=== PATIENT | male | born 1960 | race Hispanic/Latino ===

== ENCOUNTER 2023-02-18 13:12 | Emergency (ER) | payer MEDICAID, SELFPAY ==
[2023-02-18 14:19] LABS: #Basophils 0.1 thou/uL (0.0-0.2); #Eosinphils 0.4 thou/uL (0.0-0.7); #Monocytes 0.7 thou/uL (0.11-0.59); #Neutrophils 5.3 thou/uL (1.40-6.50); %Eosinophils 4.7 % (0.0-10.0); %Lymphocytes 28.7 % (21.0-51.0); %Monocytes 7.5 % (0.0-10.0); %Neutrophils 57.8 % (42.0-75.0); Hematocrit 32.7 % (42.0-52.0); Hemoglobin 11.2 g/dL (14.0-18.0); Mean Corpuscular HGB CONC 34.3 g/dL (32.0-36.0); Mean Corpuscular Hemoglobin 30.2 pg (27.0-31.0); Mean Corpuscular Volume 88.1 fl (78.0-98.0); Mean Platelet Volume 10.1 fL (7.4-10.4); Platelet Count 398 10x3/uL (130-400); Red Blood Cell (RBC) Count 3.71 mill/uL (4.70-6.10); White Blood Cell (WBC) Count 9.2 10x3/uL (4.8-10.8)
[2023-02-18 14:37] LABS: ALT (SGPT) 13 U/L (8-55); AST (SGOT) 10 U/L (5-34); Acetaminophen Less than 10 mcg/mL (10.0-30.0); Albumin 4.1 g/dL (3.4-4.8); Alcohol Less than 10.0 mg/dL (Less than 10); Alkaline Phosphatase 98 U/L (40-110); Anion Gap 13 mmol/L (10-20); BUN (Urea Nitrogen) 10 mg/dL (8.4-25.7); Bilirubin, Total 0.4 mg/dL (0.2-1.2); Calc. Creatinine Clearance 0 mL/min (70-130); Calcium 9.1 mg/dL (7.8-10.44); Carbon Dioxide 26 mmol/L (23-31); Chloride 99 mmol/L (98-107); Estimated GFR 87; Globulin 2.5 g/dL (2.4-3.5); Glucose 189 mg/dL (80-115); Potassium 3.3 mmol/L (3.5-5.1); Protein, Total 6.6 g/dL (5.8-8.1); Salicylate Less than 8.0 mg/dL (15.0-30.0); Sodium 135 mmol/L (136-145)
[2023-02-18 14:41] LABS: Troponin I Less than 0.010 ng/mL (< 0.028)
[2023-02-18] MEDS ORDERED: Potassium Bicarbonate/Cit Ac 20 MEQ TAB ONE (15:52)
== END 2023-02-18 16:55 | disposition home or self-care (01) ==
LOC: ERS 13:12
DX: E87.6 Hypokalemia (principal); E11.9 Type 2 diabetes mellitus without complications; I10 Essential (primary) hypertension
CPT/HCPCS: 36415; 70450; 80053; 80307; 84484; 85025; 93005

== ENCOUNTER 2023-02-23 18:39 | Inpatient (IN) | payer OTHER, SELFPAY ==
[2023-02-23 19:24] LABS: Bacteria/HPF None Seen HPF (None Seen); Bilirubin Negative (Negative); Blood, Urine Negative (Negative); CAUTI Indications for Culture Alt mental st,lethar; Clarity Clear (Clear); Glucose, Urine (Dipstick) 300 mg/dL (Negative); Ketone, Urine Negative (Negative); Leukocyte Negative Leu/uL (Negative); Nitrite Negative (Negative); Protein, Urine (Dipstick) Negative (Neg-Trace); RBC/HPF None Seen HPF (0-3); Specific Gravity, Urine 1.009 (1.002-1.036); Squamous Epithelial 0-3 HPF (0-3); Urobilinogen Normal mg/dL (Less than 2); WBC/HPF 0-3 HPF (0-3)
[2023-02-23 19:26] LABS: Amphetamine Not Detected (NotDetected); Barbiturates Screen Not Detected (NotDetected); Benzodiazepine Screen Not Detected (NotDetected); Cocaine Metabolite Screen Not Detected (NotDetected); Methadone Not Detected (NotDetected); Methamphetamine Not Detected (NotDetected); Opiate Screen Not Detected (NotDetected); Oxycodone Screen Not Detected (NotDetected); Phencyclidine (PCP) Not Detected (NotDetected); THC/Cannabinoid Screen Not Detected (NotDetected); Tricyclic Screen Not Detected (NotDetected)
[2023-02-23 19:29] LABS: #Basophils 0.1 thou/uL (0.0-0.2); #Eosinphils 0.4 thou/uL (0.0-0.7); #Neutrophils 5.6 thou/uL (1.40-6.50); %Basophils 0.9 % (0.0-1.0); %Eosinophils 3.8 % (0.0-10.0); %Lymphocytes 30.1 % (21.0-51.0); %Monocytes 9.9 % (0.0-10.0); %Neutrophils 54.8 % (42.0-75.0); Hematocrit 31.5 % (42.0-52.0); Mean Corpuscular HGB CONC 34.9 g/dL (32.0-36.0); Mean Corpuscular Hemoglobin 30.5 pg (27.0-31.0); Mean Corpuscular Volume 87.3 fl (78.0-98.0); Platelet Count 382 10x3/uL (130-400); RBC Distribution Width 12.9 % (11.5-14.5); Red Blood Cell (RBC) Count 3.61 mill/uL (4.70-6.10); White Blood Cell (WBC) Count 10.2 10x3/uL (4.8-10.8)
[2023-02-23 19:32] LABS: Urine Culture Reflex No No
[2023-02-23 19:50] LABS: Acetaminophen Less than 10 mcg/mL (10.0-30.0); Alcohol Less than 10.0 mg/dL (Less than 10); Lipase 26 U/L (8-78); Salicylate Less than 8.0 mg/dL (15.0-30.0)
[2023-02-23 19:51] LABS: ALT (SGPT) 10 U/L (8-55); AST (SGOT) 10 U/L (5-34); Albumin 3.8 g/dL (3.4-4.8); Alkaline Phosphatase 95 U/L (40-110); Anion Gap 14 mmol/L (10-20); BUN (Urea Nitrogen) 8 mg/dL (8.4-25.7); Bilirubin, Total 0.4 mg/dL (0.2-1.2); Calc. Creatinine Clearance 0 mL/min (70-130); Calcium 8.1 mg/dL (7.8-10.44); Carbon Dioxide 21 mmol/L (23-31); Chloride 98 mmol/L (98-107); Estimated GFR 99; Globulin 2.9 g/dL (2.4-3.5); Glucose 123 mg/dL (80-115); Potassium 3.1 mmol/L (3.5-5.1); Protein, Total 6.7 g/dL (5.8-8.1); Sodium 130 mmol/L (136-145)
[2023-02-23] MEDS ORDERED: Electrolyte Replacement Protocol 1 EACH FS PRN (22:36)
[2023-02-23] MEDS ORDERED: Ondansetron ODT 4 MG TAB PO PRN (23:03)
[2023-02-23] MEDS ORDERED: Calcium Carbonate 500 MG ChewTAB PO PRN (23:03)
[2023-02-23] MEDS ORDERED: Senokot S 8.6-50 MG TAB PO PRN (23:03)
[2023-02-23] MEDS ORDERED: Acetaminophen 325 MG TAB PO PRN (23:03)
[2023-02-23 23:26] VITALS: BMI 29.0
[2023-02-23 23:27] LABS: Hemoglobin A1c 6.8 % (4.0-6.0)
[2023-02-23] MEDS ORDERED: Potassium Chloride 20 MEQ TAB PO SCH (23:30)
[2023-02-24 06:21] LABS: #Basophils 0.1 thou/uL (0.0-0.2); #Eosinphils 0.4 thou/uL (0.0-0.7); #Monocytes 0.9 thou/uL (0.11-0.59); #Neutrophils 5.5 thou/uL (1.40-6.50); %Basophils 0.9 % (0.0-1.0); %Eosinophils 4.3 % (0.0-10.0); %Monocytes 8.5 % (0.0-10.0); %Neutrophils 55.2 % (42.0-75.0); Hematocrit 31.8 % (42.0-52.0); Hemoglobin 11.3 g/dL (14.0-18.0); Mean Corpuscular HGB CONC 35.5 g/dL (32.0-36.0); Mean Corpuscular Hemoglobin 30.6 pg (27.0-31.0); Mean Corpuscular Volume 86.2 fl (78.0-98.0); Mean Platelet Volume 10.3 fL (7.4-10.4); Platelet Count 388 10x3/uL (130-400); RBC Distribution Width 12.8 % (11.5-14.5); Red Blood Cell (RBC) Count 3.69 mill/uL (4.70-6.10)
[2023-02-24 06:50] LABS: Anion Gap 13 mmol/L (10-20); BUN (Urea Nitrogen) 7 mg/dL (8.4-25.7); Calc. Creatinine Clearance 123 mL/min (70-130); Calcium 8.2 mg/dL (7.8-10.44); Carbon Dioxide 25 mmol/L (23-31); Chloride 103 mmol/L (98-107); Estimated GFR 102; Glucose 106 mg/dL (80-115); Potassium 3.3 mmol/L (3.5-5.1); Sodium 138 mmol/L (136-145)
[2023-02-24] MEDS ORDERED: Potassium Chloride 20 MEQ TAB PO SCH (08:00)
[2023-02-24] MEDS: Famotidine 20 MG TAB PO SCH ×2 (08:53→21:18)
[2023-02-24] MEDS ORDERED: FLU VACC QS2023-24(6MOS UP)/PF 60 MCG/0.5 ML SYRINGE IM ONE (09:00)
[2023-02-24 12:55] LABS: Potassium 3.9 mmol/L (3.5-5.1)
[2023-02-24] MEDS ORDERED: Dextrose 50% Abboject 50 ML SYRINGE SLOW IVP PRN (17:24)
[2023-02-24] MEDS ORDERED: HumaLOG 300 UNITS/3 ML VIAL SC PRN ×2 (17:24)
[2023-02-24] MEDS ORDERED: Glucagon 1 MG/ML KIT IM PRN (17:24)
[2023-02-24] MEDS ORDERED: Dextrose 5% in Water 1,000 ML IV PRN (17:24)
[2023-02-24] MEDS ORDERED: hydrALAZINE 20 MG/ML VIAL SLOW IVP PRN (18:14)
[2023-02-24] MEDS ORDERED: hydrALAZINE 20 MG/ML VIAL SLOW IVP SCH (18:15)
[2023-02-24] MEDS: traZODone HCl 50 MG TAB PO SCH (21:18)
[2023-02-24] MEDS: Donepezil HCl 5 MG TAB PO SCH (21:18)
[2023-02-24] MEDS: hydrOXYzine Pamoate 25 mg Capsule PO SCH (21:18)
[2023-02-24] MEDS: Metoprolol Tartrate 25 MG TAB PO SCH (21:18)
[2023-02-24] MEDS: metFORMIN 500 MG TAB PO SCH (21:18)
[2023-02-25] MEDS: FLUoxetine HCl 20 MG CAP PO SCH (08:52)
[2023-02-25] MEDS: Aripiprazole 10 MG TAB PO SCH (08:52)
[2023-02-25] MEDS: Atorvastatin Calcium 40 MG TAB PO SCH (08:53)
[2023-02-25] MEDS: metFORMIN 500 MG TAB PO SCH ×2 (08:53→20:37)
[2023-02-25] MEDS: Metoprolol Tartrate 25 MG TAB PO SCH ×2 (08:53→20:36)
[2023-02-25] MEDS: Aspirin Chewable 81 MG TAB PO SCH (08:53)
[2023-02-25] MEDS: Famotidine 20 MG TAB PO SCH (08:53)
[2023-02-25] MEDS ORDERED: Non-Formulary Item 1 EACH (Insulin Glargine,Hum.Rec.Anlog [Basaglar Kwikpen U-100] 100 UN SQ SCH (09:00)
[2023-02-25 11:07] LABS: Anion Gap 13 mmol/L (10-20); BUN (Urea Nitrogen) 10 mg/dL (8.4-25.7); Calc. Creatinine Clearance 118 mL/min (70-130); Calcium 8.6 mg/dL (7.8-10.44); Carbon Dioxide 25 mmol/L (23-31); Chloride 103 mmol/L (98-107); Estimated GFR 101; Glucose 152 mg/dL (80-115); Magnesium 1.2 mg/dL (1.6-2.6); Phosphorus 3.2 mg/dL (2.3-4.7); Potassium 4.1 mmol/L (3.5-5.1); Sodium 137 mmol/L (136-145)
[2023-02-25] MEDS ORDERED: Magnesium Sulfate In Water 4 GM in Premix 1 BAG IVPB SCH (14:00)
[2023-02-25] MEDS: Donepezil HCl 5 MG TAB PO SCH (20:36)
[2023-02-25] MEDS: traZODone HCl 50 MG TAB PO SCH (20:36)
[2023-02-25] MEDS: hydrOXYzine Pamoate 25 mg Capsule PO SCH (20:37)
[2023-02-26 04:38] LABS: Phosphorus 3.4 mg/dL (2.3-4.7)
[2023-02-26 04:40] LABS: Anion Gap 13 mmol/L (10-20); BUN (Urea Nitrogen) 13 mg/dL (8.4-25.7); Calc. Creatinine Clearance 111 mL/min (70-130); Calcium 8.9 mg/dL (7.8-10.44); Carbon Dioxide 25 mmol/L (23-31); Chloride 102 mmol/L (98-107); Estimated GFR 99; Glucose 120 mg/dL (80-115); Magnesium 1.8 mg/dL (1.6-2.6); Potassium 3.9 mmol/L (3.5-5.1); Sodium 136 mmol/L (136-145)
[2023-02-26 07:32] VITALS: BP 119/72; TEMP 98.5
[2023-02-26] MEDS ORDERED: Magnesium 2 GM/50 ML(in water) 2 GM in Premix 1 BAG IVPB SCH (08:00)
[2023-02-26] MEDS: Aripiprazole 10 MG TAB PO SCH (08:27)
[2023-02-26] MEDS: FLUoxetine HCl 20 MG CAP PO SCH (08:27)
[2023-02-26] MEDS: metFORMIN 500 MG TAB PO SCH (08:27)
[2023-02-26] MEDS: Aspirin Chewable 81 MG TAB PO SCH (08:27)
[2023-02-26] MEDS: Metoprolol Tartrate 25 MG TAB PO SCH (08:28)
[2023-02-26] MEDS: Atorvastatin Calcium 40 MG TAB PO SCH (08:28)
== END 2023-02-26 11:20 | DRG 884 ==
LOC: ERS 18:39 → 2SE 22:42 → OBSVTOIN 02-24 17:12
PROVIDERS: ADMIT Student in an Organized Health Care Education/Training Program; ATTEND Family Medicine
DX: F03.911 Unspecified dementia, unspecified severity, with agitation (principal); G93.41 Metabolic encephalopathy; E11.9 Type 2 diabetes mellitus without complications; I10 Essential (primary) hypertension; E87.6 Hypokalemia; F31.9 Bipolar disorder, unspecified; F41.9 Anxiety disorder, unspecified; D64.9 Anemia, unspecified; E78.5 Hyperlipidemia, unspecified; Z86.73 Personal history of transient ischemic attack (TIA), and cerebral infarction without residual deficits
CPT/HCPCS: 36415; 36416; 70450; 80048; 80053; 80306; 80307; 81001; 82140; 83036; 83690; 83735; 84100; 84443; 85025; 93005; G0378; J0360; J3475; Q0177

== ENCOUNTER 2023-03-27 09:32 | Emergency (ER) | payer OTHER ==
[2023-03-27 10:26] LABS: #Basophils 0.1 thou/uL (0.0-0.2); #Eosinphils 0.3 thou/uL (0.0-0.7); #Monocytes 0.7 thou/uL (0.11-0.59); #Neutrophils 6.6 thou/uL (1.40-6.50); %Basophils 0.9 % (0.0-1.0); %Eosinophils 3.1 % (0.0-10.0); %Lymphocytes 23.2 % (21.0-51.0); %Monocytes 6.9 % (0.0-10.0); %Neutrophils 65.7 % (42.0-75.0); Hemoglobin 11.1 g/dL (14.0-18.0); Mean Corpuscular HGB CONC 33.6 g/dL (32.0-36.0); Mean Corpuscular Hemoglobin 29.6 pg (27.0-31.0); Mean Platelet Volume 10.3 fL (7.4-10.4); Platelet Count 415 10x3/uL (130-400); RBC Distribution Width 13.2 % (11.5-14.5); Red Blood Cell (RBC) Count 3.75 mill/uL (4.70-6.10); White Blood Cell (WBC) Count 10.1 10x3/uL (4.8-10.8)
[2023-03-27 10:50] LABS: ALT (SGPT) 11 U/L (8-55); AST (SGOT) 9 U/L (5-34); Albumin 3.6 g/dL (3.4-4.8); Alkaline Phosphatase 101 U/L (40-110); Anion Gap 12 mmol/L (10-20); BUN (Urea Nitrogen) 9 mg/dL (8.4-25.7); Bilirubin, Total 0.5 mg/dL (0.2-1.2); Calc. Creatinine Clearance 0 mL/min (70-130); Calcium 8.9 mg/dL (7.8-10.44); Carbon Dioxide 30 mmol/L (23-31); Chloride 100 mmol/L (98-107); Estimated GFR 100; Glucose 179 mg/dL (80-115); Potassium 3.5 mmol/L (3.5-5.1); Protein, Total 6.6 g/dL (5.8-8.1); Sodium 138 mmol/L (136-145)
[2023-03-27 10:51] LABS: Acetaminophen Less than 10 mcg/mL (10.0-30.0); Alcohol Less than 10.0 mg/dL (Less than 10); Salicylate Less than 8.0 mg/dL (15.0-30.0)
[2023-03-27 12:12] LABS: Amphetamine Not Detected (NotDetected); Barbiturates Screen Not Detected (NotDetected); Benzodiazepine Screen Not Detected (NotDetected); Cocaine Metabolite Screen Not Detected (NotDetected); Methadone Not Detected (NotDetected); Methamphetamine Not Detected (NotDetected); Opiate Screen Not Detected (NotDetected); Oxycodone Screen Not Detected (NotDetected); Phencyclidine (PCP) Not Detected (NotDetected); THC/Cannabinoid Screen Not Detected (NotDetected); Tricyclic Screen Not Detected (NotDetected)
== END 2023-03-27 14:00 | disposition home or self-care (01) ==
LOC: ERS 09:32
DX: F91.9 Conduct disorder, unspecified (principal); I10 Essential (primary) hypertension; E11.9 Type 2 diabetes mellitus without complications; E78.5 Hyperlipidemia, unspecified; Z79.82 Long term (current) use of aspirin; Z86.73 Personal history of transient ischemic attack (TIA), and cerebral infarction without residual deficits; Z79.84 Long term (current) use of oral hypoglycemic drugs; Z79.4 Long term (current) use of insulin; Z79.899 Other long term (current) drug therapy
CPT/HCPCS: 36415; 70450; 80053; 80306; 80307; 82140; 84443; 85025; 93005

== ENCOUNTER 2023-08-16 14:26 | Emergency (ER) | payer OTHER ==
[2023-08-16 16:08] LABS: #Basophils 0.05 10x3/uL (0.0-0.2); %Basophils 0.8 % (0.0-1.0); %Eosinophils 4.5 % (0.0-10.0); %Lymphocytes 33.5 % (21.0-51.0); %Monocytes 6.9 % (0.0-10.0); %Neutrophils 54.1 % (42.0-75.0); Hematocrit 22.6 % (42.0-52.0); Hemoglobin 7.4 g/dL (14.0-18.0); Mean Corpuscular HGB CONC 32.7 g/dL (32.0-36.0); Mean Corpuscular Hemoglobin 27.8 pg (27.0-31.0); Mean Platelet Volume 10.1 fL (7.4-10.4); Platelet Count 322 10x3/uL (130-400); RBC Distribution Width 15.5 % (11.5-14.5); Red Blood Cell (RBC) Count 2.66 mill/uL (4.70-6.10)
[2023-08-16 16:22] LABS: INR-International Normal Ratio 1.1; PTT 38.9 sec (22.9-36.1); Prothrombin Time 14.4 sec (12.0-14.7)
[2023-08-16 16:26] LABS: ALT (SGPT) 7 U/L (8-55); AST (SGOT) 9 U/L (5-34); Albumin 2.8 g/dL (3.4-4.8); Alkaline Phosphatase 143 U/L (40-110); Anion Gap 13 mmol/L (10-20); BUN (Urea Nitrogen) 17 mg/dL (8.4-25.7); Bilirubin, Total 0.3 mg/dL (0.2-1.2); Calc. Creatinine Clearance 0 mL/min (70-130); Calcium 8.9 mg/dL (7.8-10.44); Carbon Dioxide 23 mmol/L (23-31); Chloride 106 mmol/L (98-107); Estimated GFR 91; Globulin 4.2 g/dL (2.4-3.5); Glucose 115 mg/dL (80-115); Iron 147 ug/dL (65-175); Iron Binding Capacity, Total 204 mcg/dL (261-462); Magnesium 1.6 mg/dL (1.6-2.6); Potassium 4.2 mmol/L (3.5-5.1); Sodium 138 mmol/L (136-145)
== END 2023-08-16 19:52 ==
LOC: ERS 14:26
DX: D64.9 Anemia, unspecified (principal); E11.9 Type 2 diabetes mellitus without complications
CPT/HCPCS: 36415; 80053; 82274; 82728; 83540; 83550; 83735; 85025; 85610; 85730; 86850; 86900; 86901; 99283

== ENCOUNTER 2023-10-24 17:14 | Inpatient (IN) | payer OTHER ==
[2023-10-24] MEDS ORDERED: Piperacillin/Tazobactam 4.5 GM VIAL ONE (18:24)
[2023-10-24] MEDS ORDERED: Sodium Chloride 0.9% 100 ML ONE (18:24)
[2023-10-24 19:07] LABS: #Basophils 0.04 10x3/uL (0.0-0.2); %Basophils 0.4 % (0.0-1.0); %Lymphocytes 40.1 % (21.0-51.0); %Monocytes 4.3 % (0.0-10.0); %Neutrophils 52.9 % (42.0-75.0); Hematocrit 24.9 % (42.0-52.0); Hemoglobin 7.7 g/dL (14.0-18.0); Mean Corpuscular HGB CONC 30.9 g/dL (32.0-36.0); Mean Corpuscular Hemoglobin 26.4 pg (27.0-31.0); Mean Corpuscular Volume 85.3 fL (78.0-98.0); Mean Platelet Volume 10.1 fL (7.4-10.4); Platelet Count 215 10x3/uL (130-400); RBC Distribution Width 17.3 % (11.5-14.5); Red Blood Cell (RBC) Count 2.92 mill/uL (4.70-6.10)
[2023-10-24 19:24] LABS: ALT (SGPT) 13 U/L (8-55); AST (SGOT) 11 U/L (5-34); Albumin 2.5 g/dL (3.4-4.8); Alkaline Phosphatase 179 U/L (40-110); Anion Gap 14 mmol/L (10-20); BUN (Urea Nitrogen) 18 mg/dL (8.4-25.7); Bilirubin, Total 0.2 mg/dL (0.2-1.2); Calc. Creatinine Clearance 0 mL/min (70-130); Calcium 9.1 mg/dL (7.8-10.44); Carbon Dioxide 25 mmol/L (23-31); Chloride 103 mmol/L (98-107); Estimated GFR 100; Globulin 5.1 g/dL (2.4-3.5); Glucose 127 mg/dL (80-115); Potassium 4.1 mmol/L (3.5-5.1); Protein, Total 7.6 g/dL (5.8-8.1); Sodium 138 mmol/L (136-145)
[2023-10-24] MEDS ORDERED: Acetaminophen 325 MG TAB PO PRN (20:02)
[2023-10-24] MEDS ORDERED: Ondansetron PF 4 MG/2 ML Vial IVP PRN (20:02)
[2023-10-24] MEDS ORDERED: Dextrose 5% in Water 1,000 ML IV PRN (20:18)
[2023-10-24] MEDS ORDERED: Dextrose 50% Abboject 50 ML SYRINGE SLOW IVP PRN (20:18)
[2023-10-24] MEDS ORDERED: Insulin Lispro 100 UNIT/ML 10 ML VIAL SC PRN (20:18)
[2023-10-24] MEDS ORDERED: Glucagon 1 MG/ML KIT IM PRN (20:18)
[2023-10-24 21:23] VITALS: BMI 23.3
[2023-10-24] MEDS: Vancomycin (BATCH) 1.75 GM in Premix 1 BAG IVPB SCH (22:33)
[2023-10-24] MEDS: Piperacillin/Tazobactam 3.375 GM in Sodium Chloride 0.9% 100 ML IVPB SCH (23:37)
[2023-10-25] MEDS ORDERED: Polyethylene Glycol 3350 17 GM Packet PO PRN (06:28)
[2023-10-25] MEDS ORDERED: fentaNYL PF 100 MCG/2 ML SYRINGE ONE ×2 (08:58→10:19)
[2023-10-25] MEDS ORDERED: PROPOFOL 20 ML ONE (08:58)
[2023-10-25] MEDS ORDERED: Lidocaine 1% PF 5 ML VIAL ONE (08:59)
[2023-10-25] MEDS ORDERED: Sertraline 100 MG TAB PO SCH (09:00)
[2023-10-25] MEDS ORDERED: Lisinopril 20 MG TAB PO SCH (09:00)
[2023-10-25] MEDS ORDERED: PHENYLEPHRINE-NS 100 MCG/ML 10 ML SYRINGE ONE (09:00)
[2023-10-25] MEDS ORDERED: Ziprasidone 60 MG CAP PO SCH (09:00)
[2023-10-25] MEDS ORDERED: Divalproex Sodium 125 mg Sprinkle Capsule PO SCH (09:00)
[2023-10-25] MEDS ORDERED: Metoprolol Tartrate 25 MG TAB PO SCH (09:00)
[2023-10-25] MEDS ORDERED: Lidocaine 2% 6 ML (Jelly) SYR ONE (09:01)
[2023-10-25] MEDS ORDERED: Vancomycin 1 GM VIAL ONE (09:45)
[2023-10-25] MEDS ORDERED: Ondansetron HCl/PF 4 MG/2 ML Vial IVP PRN (10:30)
[2023-10-25] MEDS ORDERED: Promethazine HCl 25 MG/ML VIAL IM PRN (10:30)
[2023-10-25] MEDS ORDERED: fentaNYL 50 mcg/mL 1 mL Vial SLOW IVP PRN (10:39)
[2023-10-25] MEDS ORDERED: traMADol HCl 50 MG TAB PO PRN ×2 (10:39)
[2023-10-25] MEDS: traMADol HCl 50 MG TAB PO PRN (11:24)
[2023-10-25] MEDS: Vancomycin (BATCH) 1.25 GM in Premix 1 BAG IVPB SCH (11:24)
[2023-10-25] MEDS: fentaNYL 50 mcg/mL 1 mL Vial SLOW IVP PRN (11:55)
[2023-10-25 12:58] LABS: #Basophils 0.07 10x3/uL (0.0-0.2); %Basophils 0.5 % (0.0-1.0); %Eosinophils 2.2 % (0.0-10.0); %Lymphocytes 32.7 % (21.0-51.0); %Monocytes 6.9 % (0.0-10.0); %Neutrophils 57.3 % (42.0-75.0); Hematocrit 25.3 % (42.0-52.0); Hemoglobin 7.7 g/dL (14.0-18.0); Mean Corpuscular HGB CONC 30.4 g/dL (32.0-36.0); Mean Corpuscular Hemoglobin 26.5 pg (27.0-31.0); Mean Corpuscular Volume 86.9 fL (78.0-98.0); Platelet Count 700 10x3/uL (130-400); RBC Distribution Width 17.2 % (11.5-14.5); Red Blood Cell (RBC) Count 2.91 mill/uL (4.70-6.10)
[2023-10-25 13:20] LABS: Vancomycin, Random 33.5 ug/mL (See Comment)
[2023-10-25 13:22] LABS: Anion Gap 15 mmol/L (10-20); BUN (Urea Nitrogen) 14 mg/dL (8.4-25.7); Calc. Creatinine Clearance 103 mL/min (70-130); Calcium 8.8 mg/dL (7.8-10.44); Carbon Dioxide 21 mmol/L (23-31); Chloride 106 mmol/L (98-107); Estimated GFR 102; Glucose 107 mg/dL (80-115); Potassium 3.5 mmol/L (3.5-5.1); Sodium 138 mmol/L (136-145)
[2023-10-25] MEDS: Divalproex Sodium 125 mg Sprinkle Capsule PO SCH (15:44)
[2023-10-25] MEDS: hydrALAZINE 10 MG TAB PO SCH (17:34)
[2023-10-25] MEDS: Ziprasidone 60 MG CAP PO SCH (17:34)
[2023-10-25] MEDS: Metoprolol Tartrate 25 MG TAB PO SCH (20:33)
[2023-10-26 06:59] LABS: #Basophils 0.09 10x3/uL (0.0-0.2); %Basophils 0.7 % (0.0-1.0); %Eosinophils 1.9 % (0.0-10.0); %Lymphocytes 24.7 % (21.0-51.0); %Monocytes 10.2 % (0.0-10.0); %Neutrophils 62.1 % (42.0-75.0); Hematocrit 23.9 % (42.0-52.0); Hemoglobin 7.4 g/dL (14.0-18.0); Mean Corpuscular Hemoglobin 26.2 pg (27.0-31.0); Mean Corpuscular Volume 84.8 fL (78.0-98.0); Platelet Count 685 10x3/uL (130-400); RBC Distribution Width 17.4 % (11.5-14.5); Red Blood Cell (RBC) Count 2.82 mill/uL (4.70-6.10)
[2023-10-26 07:13] LABS: Vancomycin, Random 28.8 ug/mL (See Comment)
[2023-10-26 07:20] LABS: Anion Gap 13 mmol/L (10-20); BUN (Urea Nitrogen) 12 mg/dL (8.4-25.7); Calc. Creatinine Clearance 97 mL/min (70-130); Calcium 8.8 mg/dL (7.8-10.44); Carbon Dioxide 25 mmol/L (23-31); Chloride 103 mmol/L (98-107); Estimated GFR 100; Glucose 100 mg/dL (80-115); Potassium 3.9 mmol/L (3.5-5.1); Sodium 137 mmol/L (136-145)
[2023-10-26] MEDS: Sertraline 100 MG TAB PO SCH (09:00)
[2023-10-26] MEDS: Lisinopril 20 MG TAB PO SCH (09:00)
[2023-10-27 06:59] LABS: #Basophils 0.06 10x3/uL (0.0-0.2); %Basophils 0.6 % (0.0-1.0); %Eosinophils 2.1 % (0.0-10.0); %Lymphocytes 25.3 % (21.0-51.0); %Monocytes 9.4 % (0.0-10.0); %Neutrophils 62.2 % (42.0-75.0); Hematocrit 22.4 % (42.0-52.0); Hemoglobin 7.1 g/dL (14.0-18.0); Mean Corpuscular HGB CONC 31.7 g/dL (32.0-36.0); Mean Corpuscular Hemoglobin 26.3 pg (27.0-31.0); Mean Platelet Volume 9.6 fL (7.4-10.4); Platelet Count 622 10x3/uL (130-400); RBC Distribution Width 17.4 % (11.5-14.5)
[2023-10-27 07:44] LABS: Anion Gap 9 mmol/L (10-20); BUN (Urea Nitrogen) 13 mg/dL (8.4-25.7); Calc. Creatinine Clearance 96 mL/min (70-130); Calcium 8.7 mg/dL (7.8-10.44); Carbon Dioxide 26 mmol/L (23-31); Chloride 105 mmol/L (98-107); Estimated GFR 100; Glucose 130 mg/dL (80-115); Potassium 3.7 mmol/L (3.5-5.1); Sodium 136 mmol/L (136-145)
[2023-10-27 07:47] LABS: Vancomycin, Random 24.5 ug/mL (See Comment)
[2023-10-27] MEDS ORDERED: Vancomycin (BATCH) 1.5 GM in Premix 1 BAG IVPB SCH ×2 (10:00→12:00)
[2023-10-27] MEDS: Vancomycin (BATCH) 1.25 GM in Premix 1 BAG IVPB SCH ×2 (12:26→13:39)
[2023-10-27] MEDS: traMADol HCl 50 MG TAB PO PRN (21:28)
[2023-10-28] MEDS: Insulin Lispro 100 UNIT/ML 10 ML VIAL SC PRN (12:22)
[2023-10-28] MEDS: Polyethylene Glycol 3350 17 GM Packet PO PRN (14:52)
[2023-10-28] MEDS ORDERED: hydrALAZINE 10 MG TAB PO PRN (15:43)
[2023-10-28] MEDS: Senokot S 8.6-50 MG TAB PO SCH (20:37)
[2023-10-29 06:32] LABS: #Basophils 0.05 10x3/uL (0.0-0.2); %Basophils 0.5 % (0.0-1.0); %Eosinophils 4.5 % (0.0-10.0); %Lymphocytes 30.1 % (21.0-51.0); %Monocytes 8.2 % (0.0-10.0); %Neutrophils 56.3 % (42.0-75.0); Hematocrit 19.8 % (42.0-52.0); Hemoglobin 6.1 g/dL (14.0-18.0); Mean Corpuscular HGB CONC 30.8 g/dL (32.0-36.0); Mean Corpuscular Hemoglobin 27.1 pg (27.0-31.0); Mean Platelet Volume 9.7 fL (7.4-10.4); Platelet Count 595 10x3/uL (130-400); RBC Distribution Width 17.7 % (11.5-14.5); Red Blood Cell (RBC) Count 2.25 mill/uL (4.70-6.10)
[2023-10-29 06:48] LABS: Vancomycin, Random 24.5 ug/mL (See Comment)
[2023-10-29 06:51] LABS: Anion Gap 13 mmol/L (10-20); BUN (Urea Nitrogen) 18 mg/dL (8.4-25.7); Calc. Creatinine Clearance 74 mL/min (70-130); Calcium 8.8 mg/dL (7.8-10.44); Carbon Dioxide 26 mmol/L (23-31); Chloride 108 mmol/L (98-107); Estimated GFR 80; Glucose 103 mg/dL (80-115); Potassium 4.5 mmol/L (3.5-5.1); Sodium 142 mmol/L (136-145)
[2023-10-29] MEDS: Polyethylene Glycol 3350 17 GM Packet PO SCH (08:52)
[2023-10-29 16:16] VITALS: BP 159/81; TEMP 97.6
== END 2023-10-29 15:59 | DRG 240 ==
LOC: ERS 17:14 → T4-A 20:04 → OBSVTOIN 20:04 → T4-A 20:54
PROVIDERS: ADMIT Internal Medicine; ATTEND Internal Medicine
PROC: 0Y6H0Z3 Detachment at Right Lower Leg, Low, Open Approach (ICD-10-PCS; principal; 2023-10-24)
DX: E11.52 Type 2 diabetes mellitus with diabetic peripheral angiopathy with gangrene (principal); I96 Gangrene, not elsewhere classified; L03.115 Cellulitis of right lower limb; M86.9 Osteomyelitis, unspecified; E11.69 Type 2 diabetes mellitus with other specified complication; I10 Essential (primary) hypertension; Z86.73 Personal history of transient ischemic attack (TIA), and cerebral infarction without residual deficits; E78.5 Hyperlipidemia, unspecified; F41.9 Anxiety disorder, unspecified; Z79.82 Long term (current) use of aspirin; Z79.899 Other long term (current) drug therapy; Z79.84 Long term (current) use of oral hypoglycemic drugs; F03.90 Unspecified dementia, unspecified severity, without behavioral disturbance, psychotic disturbance, mood disturbance, and anxiety; D63.8 Anemia in other chronic diseases classified elsewhere; E11.42 Type 2 diabetes mellitus with diabetic polyneuropathy
CPT/HCPCS: 36415; 36416; 80048; 80053; 80202; 84145; 85025; 86850; 86900; 86901; 87040; 88307; 96374; J1815; J2543; J2704; J3010; J3370; J3490